=== PATIENT | male | born 1935 | race Caucasian/White ===

== ENCOUNTER 2017-05-21 06:13 | Day surgery (SDC) | payer OTHER ==
[2017-05-21] MEDS ORDERED: LIDOCAINE 2% (SDV) 5 ML INJ (07:38)
[2017-05-21] MEDS ORDERED: PROPOFOL 20 ML ×3 (07:38→09:12)
== END 2017-05-21 11:18 | disposition home or self-care (01) ==
LOC: GIL 06:13
DX: R19.4 Change in bowel habit (principal); D12.5 Benign neoplasm of sigmoid colon; K64.8 Other hemorrhoids; E11.9 Type 2 diabetes mellitus without complications; I10 Essential (primary) hypertension; E78.5 Hyperlipidemia, unspecified; N40.0 Benign prostatic hyperplasia without lower urinary tract symptoms
CPT/HCPCS: 45380; 88305